=== PATIENT | male | born 1980 ===

== ENCOUNTER 2017-11-22 18:53 | Emergency (ER) | payer OTHER ==
[2017-11-22 18:54] VITALS: BMI 35.2
[2017-11-22 19:09] VITALS: BP 120/80; PULSE 78; RESP 22; TEMP 98.1; O2SAT 100
[2017-11-22] MEDS ORDERED: Lidocaine 5% Patch TD STA (19:28)
[2017-11-22] MEDS ORDERED: Lidocaine 5% Patch TD ONE (19:53)
--- NOTE | 2017-11-22 20:19 | ED PDOC ---
HPI: General Adult Time Seen by Provider: 11/22/17 19:12 Chief Complaint (Nursing): Back Pain History Per: Patient Additional Complaint(s): Pt. states 9 days ago at work he lifted up a 5 gallon oil container from the ground and lifted it above his head while at work. States since then he's had L sided non-radiating lower back pain. Has been taking Advil without any relief. Denies numbness, tingling, incontinence, hematuria, dysuria, blunt trauma, abdominal pain, N/V. Past Medical History Reviewed: Historical Data, Nursing Documentation, Vital Signs Vital Signs: Last Vital Signs Temp 98.1 F 11/22/17 19:06 Pulse 78 11/22/17 19:06 Resp 22 11/22/17 19:06 BP 120/80 11/22/17 19:06 Pulse Ox 100 11/22/17 19:06 - Family History Family History: States: No Known Family Hx - Home Medications Home Medications: Ambulatory Orders Medication Instructions Recorded DiphenhydrAMINE [Benadryl] 1 - 2 cap PO Q6 PRN #30 cap 09/10/17 Methylprednisolone [Medrol Dose 4 mg PO DAILY #21 mg 09/10/17 Pack (21 tabs)] Cyclobenzaprine [Cyclobenzaprine 10 mg PO Q8 PRN #15 tab 11/22/17 HCl] Naproxen [Naprosyn] 500 mg PO BID PRN #30 tab 11/22/17 - Allergies Allergies/Adverse Reactions: Allergies Allergy/AdvReac Type Severity Reaction Status Date / Time No Known Allergies Allergy Verified 09/10/17 11:46 Review of Systems ROS Statement: Except As Marked, All Systems Reviewed And Found Negative Physical Exam - Physical Exam Appears: Positive for: Well, Non-toxic, No Acute Distress Skin: Positive for: Normal Color, Warm. Negative for: Rash Gastrointestinal/Abdominal: Positive for: Normal Exam, Soft. Negative for: Tenderness Back: Positive for: Normal Inspection, Muscle Spasm (L sided paralumbar tenderness with spasm). Negative for: L CVA Tenderness, R CVA Tenderness, Vertebral Tenderness Extremity: Positive for: Normal ROM Neurologic/Psych: Positive for: Alert, Oriented - ECG O2 Sat by Pulse Oximetry: 100 - Radiology X-Ray: Interpreted by Me (LS spine x-ray) X-Ray Interpretation: No Acute Disease - Progress ED Course And Treament: Toradol 30mg IM, flexeril 10mg PO, lidoderm patch ordered. LS spine x-ray ordered. Re-evaluation Time: 20:21 Condition: Re-examined, Improved Disposition - Clinical Impression Clinical Impression: Low back pain - Patient ED Disposition Is Patient to be Admitted: No - Disposition Referrals: [facility] [Outside] [facility] [place] [Outside] Disposition: Routine/Home Disposition Time: 20:22 Condition: IMPROVED Additional Instructions: Follow up with PMD in 2 days for further evaluation. Prescriptions: Cyclobenzaprine [Cyclobenzaprine HCl] 10 mg PO Q8 PRN #15 tab PRN Reason: Muscle Spasm Naproxen [Naprosyn] 500 mg PO BID PRN #30 tab PRN Reason: Pain Instructions: Acute Low Back Pain (ED) Forms: [employer] (Sami), [facility] ED School/Work Excuse Print Language: UKRAINIAN
--- NOTE | 2017-11-23 08:42 | RAD ---
PROCEDURE: Radiographs of the Lumbar Spine. HISTORY: pain COMPARISON: No prior. FINDINGS: BONES: Normal alignment. No listhesis. No fracture. Superior L3 endplate Schmorl's node. DISC SPACES: Mildly narrowed. OTHER FINDINGS: None. IMPRESSION: No acute fracture. Mild multilevel degenerative changes.
== END 2017-11-22 21:41 | disposition home or self-care (01) ==
LOC: H.ER 18:53
DX: M54.5 Low back pain (principal)
CPT/HCPCS: 72100; 96372; 99281; J1885

== ENCOUNTER 2018-04-14 11:57 | Emergency (ER) | payer SELFPAY ==
[2018-04-14 11:57] VITALS: BMI 35.2
[2018-04-14 12:04] VITALS: BP 123/76; PULSE 77; RESP 18; TEMP 98; O2SAT 98
[2018-04-14] MEDS ORDERED: Naproxen 500 MG TAB PO ONE ×2 (12:15→12:24)
--- NOTE | 2018-04-14 12:20 | ED PDOC ---
Upper Extremity Pain/Injury Time Seen by Provider: 04/14/18 12:06 Chief Complaint (Nursing): Upper Extremity Problem/Injury Chief Complaint (Provider): Left shoulder pain History Per: Patient History/Exam Limitations: no limitations Onset/Duration Of Symptoms: Days (x2 weeks) Current Symptoms Are (Timing): Still Present Additional Complaint(s): 37 year old male presents to the emergency department with a complaint of a left shoulder pain that started after he attempted to lift a heavy five gallon bucket while at work about 2 weeks ago. Reports he tried to pour it above his head and has had left shoulder pain since. States he attempted a massage as well as taking an Advil without the relief of pain. Denies numbness, tingling, chest pain, shortness of breath, fever, or back pain. Past Medical History Reviewed: Historical Data, Nursing Documentation Vital Signs: Last Vital Signs Temp 98.0 F 04/14/18 12:03 Pulse 77 04/14/18 12:03 Resp 18 04/14/18 12:03 BP 123/76 04/14/18 12:03 Pulse Ox 98 04/14/18 12:03 - Medical History PMH: No Chronic Diseases - Surgical History Surgical History: No Surg Hx - Family History Family History: States: Unknown Family Hx - Social History Current smoker - smoking cessation education provided: No Alcohol: None Drugs: Denies - Home Medications Home Medications: Ambulatory Orders Medication Instructions Recorded DiphenhydrAMINE [Benadryl] 1 - 2 cap PO Q6 PRN #30 cap 09/10/17 Methylprednisolone [Medrol Dose 4 mg PO DAILY #21 mg 09/10/17 Pack (21 tabs)] Cyclobenzaprine [Cyclobenzaprine 10 mg PO Q8 PRN #15 tab 11/22/17 HCl] Naproxen [Naprosyn] 500 mg PO BID PRN #30 tab 11/22/17 - Allergies Allergies/Adverse Reactions: Allergies Allergy/AdvReac Type Severity Reaction Status Date / Time No Known Allergies Allergy Verified 04/14/18 12:07 Review of Systems ROS Statement: Except As Marked, All Systems Reviewed And Found Negative (As per HPI, otherwise negative) Constitutional: Negative for: Fever Cardiovascular: Negative for: Chest Pain Respiratory: Negative for: Shortness of Breath Musculoskeletal: Positive for: Shoulder Pain (Left). Negative for: Back Pain Neurological: Negative for: Numbness (Tingling) Physical Exam - Reviewed Nursing Documentation Reviewed: Yes Vital Signs Reviewed: Yes - Physical Exam Appears: Positive for: Well, Non-toxic, No Acute Distress Skin: Positive for: Normal Color, Warm, Dry Cardiovascular/Chest: Positive for: Regular Rate, Rhythm. Negative for: Murmur Respiratory: Positive for: Normal Breath Sounds. Negative for: Accessory Muscle Use, Wheezing, Respiratory Distress Back: Positive for: Normal Inspection. Negative for: L CVA Tenderness, R CVA Tenderness, Vertebral Tenderness Extremity: Positive for: Normal ROM (Full range of motion to the left shoulder actively), Capillary Refill (< 2 second refill. Radial pulses are 2+ bilaterally. ). Negative for: Tenderness (of the left shoulder), Deformity (of the left shoulder), Swelling (of the left shoulder) Neurologic/Psych: Positive for: Alert, Oriented (x3) - ECG O2 Sat by Pulse Oximetry: 98 (RA) Pulse Ox Interpretation: Normal - Radiology X-Ray: Read By Radiologist (Shoulder x-ray) X-Ray Interpretation: No Acute Disease Medical Decision Making Medical Decision Making: Time: 1215 Initial impression: Left shoulder injury Initial plan: Naproxen 500 mg PO Left shoulder x-ray Reevaluation Time: 1237 Left shoulder x-ray FINDINGS: BONES: No acute fracture. JOINTS: Unremarkable. SOFT TISSUES: Normal. OTHER FINDINGS: None. IMPRESSION: No demonstrated fracture or dislocation. Time: 1215 Patient given work note for 2 days. Advised to follow up with orthopedic. Follow up with PMD for further evaluation. Return to ED immediately if symptoms worsen. Take Advil. Clinical Impression: Shoulder injury Scribe Attestation: Documented by Abigail Lozoya, acting as a scribe for Petr Baez PA-C. Provider Scribe Attestation: All medical record entries made by the Scribe were at my direction and personally dictated by me. I have reviewed the chart and agree that the record accurately reflects my personal performance of the history, physical exam, medical decision making, and the department course for this patient. I have also personally directed, reviewed, and agree with the discharge instructions and disposition. Disposition - Clinical Impression Clinical Impression: Shoulder injury - Patient ED Disposition Is Patient to be Admitted: No Counseled Patient/Family Regarding: Studies Performed, Diagnosis, Need For Followup, Rx Given - Disposition Referrals: [facility] [Outside] Disposition: Routine/Home Disposition Time: 12:15 Condition: STABLE Additional Instructions: Follow up with PMD for further evaluation. Return to ED immediately if symptoms worsen. Take Advil. Instructions: Shoulder Sprain (DC) Forms: [facility] (Indian), [facility] ED School/Work Excuse Print Language: GREENLANDIC
--- NOTE | 2018-04-14 12:39 | RAD ---
PROCEDURE: Radiographs of the Left Shoulder HISTORY: trauma COMPARISON: No prior. FINDINGS: BONES: No acute fracture. JOINTS: Unremarkable. SOFT TISSUES: Normal. OTHER FINDINGS: None. IMPRESSION: No demonstrated fracture or dislocation.
== END 2018-04-14 13:53 | disposition home or self-care (01) ==
LOC: H.ER 11:57
DX: S49.92XA Unspecified injury of left shoulder and upper arm, initial encounter (principal); X50.0XXA Overexertion from strenuous movement or load, initial encounter; Y99.0 Civilian activity done for income or pay

== ENCOUNTER 2018-07-21 10:29 | Emergency (ER) | payer SELFPAY ==
[2018-07-21 10:29] VITALS: BMI 35.2
[2018-07-21 10:46] VITALS: RESP 19; O2SAT 98
--- NOTE | 2018-07-21 11:47 | ED PDOC ---
HPI: Dental Pain/Injury Time Seen by Provider: 07/21/18 11:02 Chief Complaint (Nursing): Dental Pain Chief Complaint (Provider): Dental Pain History Per: Patient History/Exam Limitations: no limitations Onset/Duration Of Symptoms: Days (7) Additional Complaint(s): 38 years old male with unknown medical history presents to the ED for evaluation of worsening of left sided jaw pain associated with swelling and difficulty opening the mount onset one week. Patient reports he knows he has bad teeth in the back but he has been unable to go to the dentist because he does not have an insurance. He denies fever and reports [place], which he believes might be penicillin. Patient is tolerating PO but limited to what he eats due to difficulty of chewing. PMD: non provided Past Medical History Reviewed: Historical Data, Nursing Documentation, Vital Signs Vital Signs: Last Vital Signs Temp 98 F 07/21/18 10:44 Pulse 73 07/21/18 10:44 Resp 19 07/21/18 10:44 BP Pulse Ox 98 07/21/18 10:44 - Medical History PMH: No Chronic Diseases - Surgical History Surgical History: No Surg Hx - Family History Family History: States: Unknown Family Hx - Social History Current smoker - smoking cessation education provided: No Alcohol: None Drugs: Denies - Home Medications Home Medications: Ambulatory Orders Medication Instructions Recorded DiphenhydrAMINE [Benadryl] 1 - 2 cap PO Q6 PRN #30 cap 09/10/17 Methylprednisolone [Medrol Dose 4 mg PO DAILY #21 mg 09/10/17 Pack (21 tabs)] Cyclobenzaprine [Cyclobenzaprine 10 mg PO Q8 PRN #15 tab 11/22/17 HCl] Naproxen [Naprosyn] 500 mg PO BID PRN #30 tab 11/22/17 Amoxicillin/Clavulanate [Augmentin 1 tab PO BID #14 tab 07/21/18 875 MG-125 MG] Oxycodone HCl/Acetaminophen 1 each PO Q6 #12 tablet 07/21/18 [Percocet 10-325 mg Tablet] - Allergies Allergies/Adverse Reactions: Allergies Allergy/AdvReac Type Severity Reaction Status Date / Time No Known Allergies Allergy Verified 04/14/18 12:07 Review of Systems ROS Statement: Except As Marked, All Systems Reviewed And Found Negative Constitutional: Negative for: Fever ENT: Positive for: Mouth Pain (Left sided), Mouth Swelling (left sided) Physical Exam - Reviewed Nursing Documentation Reviewed: Yes Vital Signs Reviewed: Yes - Physical Exam Appears: Positive for: Non-toxic, No Acute Distress Head Exam: Positive for: ATRAUMATIC, NORMOCEPHALIC ENT: Positive for: Other (Swelling and tenderness to palpation to left TMJ extending over mandible and tenderness to gingiva. Destruction to posterior 2 molars with surrounding erythema. Exposed tendon.) Cardiovascular/Chest: Positive for: Regular Rate, Rhythm. Negative for: Murmur Respiratory: Positive for: Normal Breath Sounds. Negative for: Respiratory Distress Gastrointestinal/Abdominal: Positive for: Normal Exam, Soft. Negative for: Tenderness Extremity: Positive for: Normal ROM. Negative for: Tenderness, Swelling Neurologic/Psych: Positive for: Alert, Oriented (x3) Comments: Exam limited as patient cannot fully open his mouth. - Laboratory Results Result Diagrams: 07/21/18 12:20 07/21/18 12:20 - ECG O2 Sat by Pulse Oximetry: 98 (RA) Pulse Ox Interpretation: Normal Medical Decision Making Medical Decision Making: Time: 1112 A/P: Rule out fluctuance --Workup for left mandibular abscess --basic labs --Morphine for pain control --CT Maxillofacial --Reassess patient Time: [address] RESULTS FINDINGS: NASAL BONES: Unremarkable. ORBITS: Unremarkable. PARANASAL SINUSES/ MASTOIDS: Clear. MAXILLA: Unremarkable. MANDIBLE/ TEMPOROMANDIBULAR JOINTS: Unremarkable. SKULL BASE: Unremarkable. TEMPORAL BONES: Middle ears and mastoid grossly unremarkable. OTHER FINDINGS: No suspicious contrast enhancement is appreciated. No abscess identified throughout the facial soft tissues. Note is made of mild bilateral submandibular triangle lymphadenopathy and shotty bilateral submental and jugular digastric lymph nodes. No definitive mass is identified with the submandibular and parotid glands unremarkable as imaged. Trace left mandibular subcutaneous reactive changes are questioned without fluid collection. IMPRESSION: Borderline left mandibular soft tissue edema. No facial fluid collection or abnormal contrast enhancement appreciated throughout. Limited bilateral submandibular lymphadenopathy bilaterally. No suspicious salivary gland mass or enlargement appreciable. 1506 CT shows no significant abnormality. Patient will be discharge with a prescription for Augmentin and Percocet. Instructions given for using Percocet only for severe pain otherwise use Motrin. Patient is given referral for dental follow up. ----- Scribe Attestation: Documented by Lata Estrada, acting as a scribe for Yessica Amos MD. Provider Scribe Attestation: All medical record entries made by the Scribe were at my direction and personally dictated by me. I have reviewed the chart and agree that the record accurately reflects my personal performance of the history, physical exam, medical decision making, and the department course for this patient. I have also personally directed, reviewed, and agree with the discharge instructions and disposition. Disposition - Clinical Impression Clinical Impression: Dental caries, Dental injury - Disposition Referrals: Modesto Gambino DDS [Staff Provider] - Disposition: Routine/Home Disposition Time: 15:06 Condition: IMPROVED Additional Instructions: Follow up with the dentist as soon as possible. Take antibiotics as prescribed. Take Motrin for mild pain. Take Percocet only for severe pain and do not operate machinery, drive a car, or perform dangerous activities if you are taking Percocet. Return to the emergency department if swelling or pain worsens or if you develop fever, trouble swallowing, difficulty breathing, or other new symptoms. Prescriptions: Amoxicillin/Clavulanate [Augmentin 875 MG-125 MG] 1 tab PO BID #14 tab Oxycodone HCl/Acetaminophen [Percocet 10-325 mg Tablet] 1 each PO Q6 #12 tablet Instructions: Tooth Decay, Adult (DC), Dental Pain (DC) Forms: [employer] (Japanese), [employer] (Burkinan) Print Language: BELARUSIAN
[2018-07-21 12:44] LABS: BASO # 0.1 K/uL (0.0-0.2); BASO % 0.7 % (0.0-2.0); EOS # 0.7 K/uL (0.0-0.7); EOS % 8.6 % (0.0-4.0); LYMPH # 2.3 K/uL (1.0-4.3); LYMPH % 28.3 % (20.0-40.0); MEAN CORPUSCULAR HEMOGLOBIN 28.3 pg (27.0-31.0); MEAN CORPUSCULAR HGB CONC 33.6 g/dL (33.0-37.0); MEAN PLATELET VOLUME 9.5 fl (7.2-11.7); MONO # 0.6 K/uL (0.0-0.8); MONO % 7.5 % (0.0-10.0); NEUT # 4.4 K/uL (1.8-7.0); NEUT % 54.9 % (50.0-75.0); RBC 4.94 Mil/uL (4.40-5.90); RED CELL DISTRIBUTION WIDTH 14.1 % (11.5-14.5)
[2018-07-21 12:55] LABS: BLOOD UREA NITROGEN 10 mg/dl (9-20); CALCIUM 9.5 mg/dL (8.4-10.2); GFR NON-AFRICAN AMERICAN > 60
[2018-07-21] MEDS ORDERED: Sodium Chloride 0.9% 50 ML IV ONE (13:23)
[2018-07-21] MEDS ORDERED: Iohexol 300 100 ML IJ ONE (13:23)
--- NOTE | 2018-07-21 14:15 | CT ---
Date of service: 07/21/2018 PROCEDURE: CT MAXILLOFACIAL BONES WITH CONTRAST HISTORY: left facial swelling and pain COMPARISON: None. TECHNIQUE: Contiguous axial CT images of the maxillofacial bones were obtained following administration of IV contrast. Coronal and sagittal reformats were generated. Intravenous contrast Dose: Omnipaque 300, 99 cc Radiation dose: Total exam DLP = 721.31 mGy-cm. This CT exam was performed using one or more of the following dose reduction techniques: Automated exposure control, adjustment of the mA and/or kV according to patient size, and/or use of iterative reconstruction technique. FINDINGS: NASAL BONES: Unremarkable. ORBITS: Unremarkable. PARANASAL SINUSES/ MASTOIDS: Clear. MAXILLA: Unremarkable. MANDIBLE/ TEMPOROMANDIBULAR JOINTS: Unremarkable. SKULL BASE: Unremarkable. TEMPORAL BONES: Middle ears and mastoid grossly unremarkable. OTHER FINDINGS: No suspicious contrast enhancement is appreciated. No abscess identified throughout the facial soft tissues. Note is made of mild bilateral submandibular triangle lymphadenopathy and shotty bilateral submental and jugular digastric lymph nodes. No definitive mass is identified with the submandibular and parotid glands unremarkable as imaged. Trace left mandibular subcutaneous reactive changes are questioned without fluid collection. IMPRESSION: Borderline left mandibular soft tissue edema. No facial fluid collection or abnormal contrast enhancement appreciated throughout. Limited bilateral submandibular lymphadenopathy bilaterally. No suspicious salivary gland mass or enlargement appreciable.
[2018-07-21 15:26] VITALS: BP 128/76; PULSE 78; TEMP 97
== END 2018-07-21 15:26 | disposition home or self-care (01) ==
LOC: H.ER 10:29
DX: K02.9 Dental caries, unspecified (principal); R22.0 Localized swelling, mass and lump, head
CPT/HCPCS: 70488; 80048; 85025; 96374; 99282; J2270; Q9967

== ENCOUNTER 2018-08-15 10:04 | Emergency (ER) | payer SELFPAY ==
[2018-08-15 10:10] VITALS: TEMP 97; BMI 29.4
--- NOTE | 2018-08-15 10:48 | ED PDOC ---
HPI: Abdomen Time Seen by Provider: 08/15/18 10:32 Chief Complaint (Nursing): Abdominal Pain Chief Complaint (Provider): Abdominal Pain History Per: Patient History/Exam Limitations: no limitations Onset/Duration Of Symptoms: Days (x 2 ) Current Symptoms Are (Timing): Still Present Location Of Pain/Discomfort: LUQ, LLQ Quality Of Discomfort: "Pain" Associated Symptoms: denies: Nausea, Vomiting, Diarrhea, Loss Of Appetite Additional Complaint(s): 38 year old male presents to the ED with worsening left sided abdominal pain for the last 2 days. Patient reports he is tolerating food and liquids normally. Unable to state what makes pain better or worse. He has had similar symptoms before on his right side. Patient also had a pustular rash on his stomach that he claims to have had intermittently for several years. Denies nausea, vomiting, diarrhea, testicular pain or swelling, penile discharge and dysuria. PMD: none provided Past Medical History Reviewed: Historical Data, Nursing Documentation, Vital Signs Vital Signs: Last Vital Signs Temp 97 F L 08/15/18 10:09 Pulse 73 08/15/18 10:09 Resp 18 08/15/18 10:09 BP 124/79 08/15/18 10:09 Pulse Ox 97 08/15/18 10:09 - Medical History PMH: No Chronic Diseases - Surgical History Surgical History: No Surg Hx - Family History Family History: States: Unknown Family Hx - Home Medications Home Medications: Ambulatory Orders Medication Instructions Recorded RX: No Known Home Med 08/15/18 - Allergies Allergies/Adverse Reactions: Allergies Allergy/AdvReac Type Severity Reaction Status Date / Time No Known Allergies Allergy Verified 08/15/18 10:21 Review of Systems ROS Statement: Except As Marked, All Systems Reviewed And Found Negative Gastrointestinal: Positive for: Abdominal Pain (worsening left sided abdominal pain) Genitourinary Male: Negative for: Dysuria, Penile Discharge, Penile Pain Physical Exam - Reviewed Nursing Documentation Reviewed: Yes Vital Signs Reviewed: Yes - Physical Exam Appears: Positive for: Non-toxic, No Acute Distress Head Exam: Positive for: ATRAUMATIC, NORMAL INSPECTION, NORMOCEPHALIC Skin: Positive for: Warm, Dry, Rash (pustular rash over abdomen with approximat cheryle a dozen raised vesicles without confluence, drainage or signs of infection; at various stages of healing) Eye Exam: Positive for: EOMI, Normal appearance, PERRL Neck: Positive for: Normal, Painless ROM, Supple Cardiovascular/Chest: Positive for: Regular Rate, Rhythm. Negative for: Murmur Respiratory: Positive for: Normal Breath Sounds. Negative for: Respiratory Distress Gastrointestinal/Abdominal: Positive for: Tenderness (LLQ tenderness) Back: Positive for: Normal Inspection. Negative for: L CVA Tenderness, R CVA Tenderness Extremity: Positive for: Normal ROM (x 4). Negative for: Deformity Neurologic/Psych: Positive for: Alert, Oriented (x 3). 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 States that pain began yesterday and was so severe last night that he was unable to sleep. Yesterday, he noticed constipation and was struggling when trying to pass a bowel movement. This morning, he had a normal bowel movement. Shortly after, pain began to worsen again. He reports some mild improvement with Toradol here. Also noticed some swelling of his left testicle but is not causing him distress. He was never diagnosed with a hernia and denies blood in stool or diarrhea. Discussed conservative option of outpatient follow up. However, he is concerned by symptoms and would like a CT in the ED. 15:40 Abdomen/Pelvis CT IMPRESSION: No appreciable acute inflammatory process in the abdomen or pelvis. No evidence of colitis. Fatty infiltration of the liver. No evidence of gallstones or gallbladder wall thickening. 16:55 Labs within normal limits. CT is unremarkable. Pain is controlled with NSAID. Patient to follow up with outpatient clinic as needed. Scribe Attestation: Documented by Lauren Pace acting as a scribe for Yessica Langley MD Provider Scribe Attestation: All medical record entries made by the Scribe were at my direction and personally dictated by me. I have reviewed the chart and agree that the record accurately reflects my personal performance of the history, physical exam, medical decision making, and the department course for this patient. I have also personally directed, reviewed, and agree with the discharge instructions and disposition. Disposition - Clinical Impression Clinical Impression: Abdominal pain - Patient ED Disposition Is Patient to be Admitted: No - Disposition Disposition: Routine/Home Disposition Time: 17:04 Condition: IMPROVED Additional Instructions: Follow up with primary medical doctor as needed. Take Tylenol or Ibuprofen for pain. Return to the emergency department if symptoms worsen. Instructions: Acute Abdomen (Belly Pain), Adult (DC) Forms: [employer] (Micronesian), [employer] (Turkish) Print Language: ROMANIAN
[2018-08-15 11:25] LABS: BASO % 0.5 % (0.0-2.0); EOS # 0.8 K/uL (0.0-0.7); EOS % 10.6 % (0.0-4.0); HEMOGLOBIN 13.7 g/dL (12.0-18.0); LYMPH # 2.8 K/uL (1.0-4.3); LYMPH % 38.6 % (20.0-40.0); MEAN CELL VOLUME 84.6 fl (80.0-94.0); MEAN CORPUSCULAR HEMOGLOBIN 27.9 pg (27.0-31.0); MONO # 0.6 K/uL (0.0-0.8); MONO % 7.6 % (0.0-10.0); NEUT # 3.1 K/uL (1.8-7.0); NEUT % 42.7 % (50.0-75.0); RBC 4.9 Mil/uL (4.40-5.90); RED CELL DISTRIBUTION WIDTH 13.8 % (11.5-14.5); WHITE BLOOD COUNT 7.4 K/uL (4.8-10.8)
[2018-08-15 11:34] LABS: ALB/GLOB RATIO 1.1 (1.0-2.1); ALBUMIN 4.3 g/dL (3.5-5.0); ALT/SGPT 82 U/L (21-72); AST/SGOT 50 U/L (17-59); BLOOD UREA NITROGEN 16 mg/dl (9-20); GFR NON-AFRICAN AMERICAN > 60; LIPASE 57 U/L (23-300)
[2018-08-15 11:35] LABS: SQUAMOUS EPITHIAL < 1 /hpf (0-5); URINE BILIRUBIN NEGATIVE (NEGATIVE); URINE BLOOD NEGATIVE (NEGATIVE); URINE CLARITY CLEAR (Clear); URINE COLOR YELLOW (YELLOW); URINE GLUCOSE (UA) 50 mg/dL (Normal); URINE LEUKOCYTE ESTERASE NEG Leu/uL (Negative); URINE PROTEIN NEGATIVE (NEGATIVE); URINE UROBILINOGEN 0.2-1.0 mg/dL (0.2-1.0)
[2018-08-15] MEDS ORDERED: Iohexol 300 100 ML IJ ONE (14:19)
[2018-08-15] MEDS ORDERED: Sodium Chloride 0.9% 50 ML IV ONE (14:19)
--- NOTE | 2018-08-15 15:43 | CT ---
Date of service: 08/15/2018 PROCEDURE: CT Abdomen and Pelvis with contrast HISTORY: LLQ pain worsening for 2 days COMPARISON: None. TECHNIQUE: Contrast dose: 95 cc Radiation dose: Total exam DLP = 589 mGy-cm. This CT exam was performed using one or more of the following dose reduction techniques: Automated exposure control, adjustment of the mA and/or kV according to patient size, and/or use of iterative reconstruction technique. FINDINGS: LOWER THORAX: Lung bases are unremarkable. Visualized esophagus, stomach, and duodenum are unremarkable. LIVER: Liver is diffusely fatty infiltrated, without evidence of focal mass or intrahepatic ductal dilatation. There is focal fatty sparing identified adjacent to the gallbladder. GALLBLADDER AND BILE DUCTS: Unremarkable. PANCREAS: Unremarkable. No gross lesion or ductal dilatation. SPLEEN: Unremarkable. ADRENALS: Unremarkable. No mass. KIDNEYS AND URETERS: Unremarkable. No hydronephrosis. No solid mass. VASCULATURE: Unremarkable. No aortic aneurysm. BOWEL: No bowel wall thickening is seen. No pericolonic inflammatory changes are noted to suggest colitis. Rectum and perirectal region are unremarkable. Small bowel shows no evidence of significant dilatation or wall thickening. APPENDIX: Normal appendix. PERITONEUM: Unremarkable. No free fluid. No free air. LYMPH NODES: Unremarkable. No enlarged lymph nodes. BLADDER: Unremarkable. REPRODUCTIVE: Unremarkable. BONES: No acute fracture. OTHER FINDINGS: None. IMPRESSION: No appreciable acute inflammatory process in the abdomen or pelvis. No evidence of colitis. Fatty infiltration of the liver. No evidence of gallstones or gallbladder wall thickening.
[2018-08-15 17:10] VITALS: BP 130/80; PULSE 88; RESP 19; O2SAT 99
== END 2018-08-15 17:10 | disposition home or self-care (01) ==
LOC: H.ER 10:04
DX: R10.32 Left lower quadrant pain (principal)
CPT/HCPCS: 74177; 80053; 81003; 83690; 85025; 96374; 99283; J1885; Q9967